=== PATIENT | female | born 1975 | race Caucasian/White ===

== ENCOUNTER 2022-03-27 22:20 | Emergency (ER) | payer SELFPAY ==
[~2022-03-27] VITALS: Ht 152.4 cm; Wt 109.0 kg
[2022-03-27] MEDS ORDERED: ASPIRIN 81 MG CHEWABLE TABLET PO ONE (22:45)
[2022-03-27 23:04] LABS: BASOPHILS % (AUTO) 0.6 % (0.0-2.0); EOSINOPHILS % (AUTO) 1.9 % (1.0-6.0); HEMATOCRIT 37.3 % (36-46); HEMOGLOBIN 12.5 g/dL (12.0-16.0); LYMPHOCYTES % (AUTO) 22.4 % (22.0-44.0); MEAN CORPUSCULAR HEMOGLOBIN 28.6 pg (26.0-34.0); MEAN CORPUSCULAR HGB CONC 33.6 G/dL (31.0-37.0); MEAN CORPUSCULAR VOLUME 85 fL (80-100); MONOCYTES # (AUTO) 0.6 K/uL (0.1-1.0); MONOCYTES % (AUTO) 6.7 % (2.0-9.0); NEUTROPHILS # (AUTO) 6.1 K/uL (1.8-7.7); NEUTROPHILS % (AUTO) 68.4 % (40.0-70.0); PLATELET COUNT (AUTO) 216 K/uL (150-450); RED BLOOD CELL COUNT(AUTO) 4.38 MIL/uL (4.00-5.20); RED CELL DISTRIBUTION WIDTH 14.5 % (11.5-14.5)
[2022-03-27 23:08] LABS: ANION GAP 3 mmol/L (8-16); CALCIUM, TOTAL 8.8 mg/dL (8.8-10.5); CARBON DIOXIDE 26 mmol/L (22-29); CHLORIDE 102 mmol/L (98-107); CREATININE 0.78 mg/dL (0.60-1.30); GLUCOSE,RANDOM 153 mg/dL (70-110); POTASSIUM 3.4 mmol/L (3.5-5.1); SODIUM SERUM 131 mmol/L (136-145); UREA NITROGEN, BLOOD 11 mg/dL (7-18)
[2022-03-27 23:09] LABS: GLOMERULAR FILTR. RATE CALC > 60 mL/min (>60)
[2022-03-27 23:10] LABS: PROTHROMBIN TIME 10.2 SEC (9.4-11.6)
[2022-03-27 23:29] LABS: B-TYPE NATRIURETIC PEPTIDE 9 pg/mL (0-100)
[2022-03-27 23:34] LABS: ALANINE AMINOTRANSFERASE 56 U/L (12-78); ALBUMIN 3.6 g/dL (3.4-5.0); ALKALINE PHOSPHATASE 109 U/L (46-116); ASPARTATE AMINOTRANSFERASE 32 U/L (15-37); BILIRUBIN,TOTAL 0.2 mg/dL (0.1-1.0); CREATINE KINASE, TOTAL ONLY 140 U/L (26-192); HCG,QUANTITATIVE < 1 mIU/mL (0-6); TOTAL PROTEIN, SERUM 8.1 g/dL (6.4-8.2)
[2022-03-28 00:11] LABS: COVID AG,FIA SOURCE NASAL SWAB
[2022-03-28 01:51] VITALS: BP 125/84
== END 2022-03-28 02:13 | disposition home or self-care (01) ==
LOC: EDUNIT# 22:20 → EMS 22:23
DX: R07.9 Chest pain, unspecified (principal); Z20.822 Contact with and (suspected) exposure to COVID-19
CPT/HCPCS: 71045; 80053; 82550; 83880; 84484; 84702; 85025; 85610; 93005; 99285; 36415-L1; 36415-TC

== ENCOUNTER 2022-12-29 23:56 | Emergency (ER) | payer MEDICAID ==
[~2022-12-29] VITALS: Ht 154.9 cm; Wt 90.0 kg
[2022-12-30 00:01] VITALS: TEMP 98.2
[2022-12-30] MEDS ORDERED: METH-812 PO (00:47)
[2022-12-30] MEDS ORDERED: IBUP-1492 PO (00:47)
[2022-12-30] MEDS ORDERED: KETOROLAC TROMETHAMINE 30 MG/ML VIAL IM ONE (01:00)
[2022-12-30 01:07] VITALS: BP 121/70; PULSE 70; RESP 16
== END 2022-12-30 01:08 | disposition home or self-care (01) ==
LOC: EMS 23:57
DX: M54.2 Cervicalgia (principal)
CPT/HCPCS: 99283; 96372; J1885